=== PATIENT | female | born 1945 | race American Indian/Alaskan Native ===

== ENCOUNTER 2017-03-19 09:02 | Emergency (ER) | payer MEDICARE ==
[2017-03-19 09:26] VITALS: BP 191/115
[2017-03-19 09:53] LABS: Basophils # (Auto) 0.1 K/mm3 (0.0-0.1); Basophils % (Auto) 0.7 % (0.0-1.8); Eosinophils # (Auto) 0.3 K/mm3 (0.0-0.4); Eosinophils % (Auto) 2.2 % (0.0-4.3); Hemoglobin 12.6 gm/dl (10.1-14.3); Lymphocytes # (Auto) 2.6 K/mm3 (1.2-5.4); Lymphocytes % (Auto) 23.4 % (13.4-35.0); Mean Corpuscular HGB Conc 32 % (30-34); Mean Corpuscular Hemoglobin 26 pg (28-32); Mean Corpuscular Volume 81 fl (79-97); Monocytes # (Auto) 0.9 K/mm3 (0.0-0.8); Monocytes % (Auto) 7.8 % (0.0-7.3); Platelet Count 313 K/mm3 (140-440); Red Blood Count 4.81 M/mm3 (3.65-5.03); Red Cell Distribution Width 17.7 % (13.2-15.2)
[2017-03-19 10:07] LABS: BUN/Creatinine Ratio 19; Blood Urea Nitrogen 15 mg/dL (7-17); Calcium 9.3 mg/dL (8.4-10.2); Hemolysis Index 26
--- NOTE | 2017-03-19 11:33 | XRay Report ---
PA and lateral chest: SOB There is cardiac enlargement. There is no vascular congestion. Mild areas of patchy infiltrate or atelectasis are noted in the mid to lower right lung. There is blunting of the right costophrenic angle. No prior study for comparison. Impression: The findings are consistent with mild CHF although if not clinically consistent other sources of small right effusion should be considered.
== END 2017-03-19 23:15 | disposition left against medical advice (07) ==
LOC: ED 09:02
DX: R06.02 Shortness of breath (principal); Z53.21 Procedure and treatment not carried out due to patient leaving prior to being seen by health care provider
CPT/HCPCS: 36415; 71046; 80048; 85025; 93005; 93010

== ENCOUNTER 2017-11-03 11:26 | Emergency (ER) | payer MEDICARE ==
[2017-11-03 13:17] LABS: Hematocrit 42.1 % (30.3-42.9); Hemoglobin 14.1 gm/dl (10.1-14.3); Mean Corpuscular HGB Conc 33 % (30-34); Mean Corpuscular Hemoglobin 29 pg (28-32); Mean Corpuscular Volume 86 fl (79-97); Platelet Count 311 K/mm3 (140-440); Red Cell Distribution Width 13.8 % (13.2-15.2)
[2017-11-03 13:28] LABS: INR 0.98 (0.87-1.13)
--- NOTE | 2017-11-03 13:28 | Cat Scan Report ---
CT HEAD WITHOUT CONTRAST: HISTORY: Hypertension, dizziness. TECHNIQUE: Sequential 2.5mm CT images. COMPARISON: none. FINDINGS: Cerebral Parenchyma: Within normal limits. Cerebellum: Within normal limits. Brainstem: Within normal limits. Ventricles: Normal. Sella: Normal. Extra-axial spaces: Normal. Basal Cisterns: Normal. Intracranial Hemorrhage: None. Midline Shift: None. Calvarium: Normal. Sinuses: Normal. Mastoid Air Cells: Normal. Visualized Orbits: Normal. IMPRESSION: Cranial CT scan within normal limits.
[2017-11-03 13:39] LABS: BUN/Creatinine Ratio 20; Blood Urea Nitrogen 16 mg/dL (7-17); Calcium 9.9 mg/dL (8.4-10.2); Hemolysis Index 3
[2017-11-03] MEDS ORDERED: APRESOLINE IV ONE ×2 (15:28→17:25)
[2017-11-03 17:02] VITALS: BP 184/74
--- NOTE | 2017-11-03 17:40 | Emergency Department Report ---
HPI - General Chief Complaint: High BP Time Seen by Provider: 11/03/17 15:08 - HPI HPI: The patient is a 72-year-old female who presents for evaluation of elevated blood pressure. The patient states that her PCP has started her to present due to severely elevated blood pressure systolic greater than 200. The patient denies any symptoms whatsoever at this time. She states that she has experienced dizziness earlier today, which she attributes to her blood pressure medicines, but she is adarmant that she has had no dizziness whatsoever now. The patient denies fever, chest pain, syncope, neck pain, parasthesias, dyspnea , cough, hemoptysis, palpitations, syncope, unilateral leg swelling, calf muscle pain. ED Past Medical Hx - Past Medical History Hx Hypertension: Yes Hx Congestive Heart Failure: Yes Hx Arthritis: Yes (rheumatoid) Hx Asthma: Yes - Surgical History Additional Surgical History: "sterilization", 2009 intubated - Social History Smoking Status: Never Smoker Substance Use Type: None - Medications Home Medications: Home Medications Medication Instructions Recorded Confirmed Last Taken Type Losartan [Cozaar] 25 mg PO BID 03/19/17 11/03/17 03/19/17 History cloNIDine [Catapres] 0.1 mg PO BID 11/03/17 11/03/17 Unknown History hydrALAZINE [Apresoline TAB] 25 mg PO Q8HR #90 tab 11/03/17 Unknown Rx ED Review of Systems ROS: Stated complaint: HIGH BP Other details as noted in HPI Constitutional: denies: fever ENT: denies: throat or neck pain Respiratory: denies: cough, shortness of breath Cardiovascular: denies: chest pain Endocrine: denies unexplained weight loss or gain Gastrointestinal: denies: abdominal pain, nausea Genitourinary: denies: dysuria Musculoskeletal: denies: leg swelling Skin: denies: rash Neurological: denies: headache Hematological/Lymphatic: denies: easy bleeding or easy bruising Psych: denies sadness or hopelessness Physical Exam - Physical Exam Vital Signs: Vital Signs 11/03/17 11/03/17 11/03/17 11:38 15:09 15:15 Temperature 98 F 97.7 F Pulse Rate 46 L 64 Respiratory 18 21 Rate Blood Pressure 242/90 219/79 Blood Pressure 219/79 [Left] O2 Sat by Pulse 100 97 99 Oximetry 11/03/17 11/03/1718 15:31 15:45 16:01 Temperature Pulse Rate 75 67 44 L Respiratory 19 25 H 10 L Rate Blood Pressure 225/92 220/96 216/79 Blood Pressure [Left] O2 Sat by Pulse Oximetry 11/03/17 11/03/17 11/03/17 16:15 16:31 16:46 Temperature Pulse Rate 60 41 L Respiratory 12 15 Rate Blood Pressure 214/86 199/74 199/74 Blood Pressure [Left] O2 Sat by Pulse 76 L Oximetry 11/03/17 17:01 Temperature Pulse Rate 40 L Respiratory 9 L Rate Blood Pressure 184/74 Blood Pressure [Left] O2 Sat by Pulse 97 Oximetry Physical Exam: General: well-nourished, well-developed, no acute distress Head: Normocephalic, atraumatic Eyes: normal sclera ENT: Mucous membranes are pale and dry Neck: No neck stiffness, no cervical adenopathy Respiratory: Breath sounds equal bilaterally, no wheezing, rales, or rhonchi Cardio: S1 and S2 present, no murmurs, rubs, gallops, capillary refill is delayed Abdomen: Normoactive bowel sounds, soft abdomen, no rigidity, no guarding or rebound tenderness Chest WALL/Back: No tenderness to palpation of the chest wall, no CVA tenderness with percussion Musc: No pitting edema Skin: No rash Neuro: no facial drooping, normal speech Psych: Normal affect ED Course Vital Signs 11/03/17 11/03/17 11/03/17 11:38 15:09 15:15 Temperature 98 F 97.7 F Pulse Rate 46 L 64 Respiratory 18 21 Rate Blood Pressure 242/90 219/79 Blood Pressure 219/79 [Left] O2 Sat by Pulse 100 97 99 Oximetry 11/03/17 11/03/17 11/03/17 15:31 15:45 16:01 Temperature Pulse Rate 75 67 44 L Respiratory 19 25 H 10 L Rate Blood Pressure 225/92 220/96 216/79 Blood Pressure [Left] O2 Sat by Pulse Oximetry 11/03/17 11/03/17 11/03/17 16:15 16:31 16:46 Temperature Pulse Rate 60 41 L Respiratory 12 15 Rate Blood Pressure 214/86 199/74 199/74 Blood Pressure [Left] O2 Sat by Pulse 76 L Oximetry 11/03/17 17:01 Temperature Pulse Rate 40 L Respiratory 9 L Rate Blood Pressure 184/74 Blood Pressure [Left] O2 Sat by Pulse 97 Oximetry ED Medical Decision Making - Lab Data Result diagrams: 11/03/17 12:46 11/03/17 12:46 - Medical Decision Making The patient was seen and examined by myself. The patient is placed on a field care coordinator and continuous pulse ox. On initial evaluation, the patient was found to be in no distress. Evaluation orders were placed. The patient given IV hydralazine for her elevated blood pressure. Lab results are not concerning. CT scan the head is negative. On reexamination the patient's blood pressure was found to decrease outside of range concerning for hypertensive emergency, and HR now 68. As patient is asymptomatic, the patient is waxing and waning bradycardia does not require intervention at this time. The patient is stable for discharge with outpatient follow-up. The patient is given follow-up and return instructions. The patient expressed understanding and agreed with the plan. The patient is discharged in stable condition. Critical care attestation.: If time is entered above; I have spent that time in minutes in the direct care of this critically ill patient, excluding procedure time. ED Disposition Clinical Impression: Dehydration, Orthostatic dizziness Hypertension Qualifiers: Hypertension type: unspecified Qualified Code(s): I10 - Essential (primary) hypertension Disposition: - TO HOME OR SELFCARE Is pt being admited?: No Does the pt Need Aspirin: No Condition: Stable Instructions: Hypertension (ED) Prescriptions: hydrALAZINE [Apresoline TAB] 25 mg PO Q8HR #90 tab Referrals: ZULAY SPIVEY MD [Staff Physician] - 3-5 Days FLORENCE RODRIGUEZ MD [Staff Physician] - 3-5 Days PRIMARY CAREMD [Primary Care Provider] - 3-5 Days Time of Disposition: 17:35
== END 2017-11-03 19:50 | disposition home or self-care (01) ==
LOC: ED 11:26
DX: E86.0 Dehydration (principal); I11.0 Hypertensive heart disease with heart failure; I50.9 Heart failure, unspecified; R42 Dizziness and giddiness; M19.90 Unspecified osteoarthritis, unspecified site; J45.909 Unspecified asthma, uncomplicated; Z79.899 Other long term (current) drug therapy
CPT/HCPCS: 36415; 70450; 80048; 85027; 85610; 93005; 93010; 96374; 99284; J0360